=== PATIENT | male | born 1935 | race Caucasian/White ===

== ENCOUNTER 2022-09-09 18:59 | Emergency (ER) | payer MEDICARE, OTHER ==
[2022-09-09 19:24] LABS: BASOPHILS PERCENT AUTO 0.3 % (0.2-1.2); EOSINOPHILS ABSOLUTE AUTO 0.1 x10^3/uL (0.0-0.5); EOSINOPHILS PERCENT AUTO 2.2 % (0.0-4.0); HEMATOCRIT 36.5 % (40.0-52.0); HEMOGLOBIN 12.5 g/dL (14.0-18.0); LYMPHOCYTES ABSOLUTE AUTO 1.5 x10^3/uL (1.0-4.8); LYMPHOCYTES PERCENT AUTO 25.5 % (25.0-50.0); MEAN CORPUSCULAR HGB CONC 34.2 g/dL (32.0-36.0); MEAN CORPUSCULAR VOLUME 96.3 fL (78.0-93.0); MONOCYTES ABSOLUTE AUTO 0.8 x10^3/uL (0.0-0.8); MONOCYTES PERCENT AUTO 12.5 % (2.0-11.0); NEUTROPHILS ABSOLUTE AUTO 3.6 x10^3/uL (1.8-7.7); NEUTROPHILS PERCENT AUTO 59.5 % (50.0-80.0); PLATELET COUNT,PLT 167 x10^3/uL (130-400); RED BLOOD CELL COUNT 3.79 x10^6/uL (4.5-6.0)
[2022-09-09 19:44] LABS: A/G RATIO 1.03; ALANINE AMINOTRANSFERASE,ALT 27 U/L (16-63); ALBUMIN 3.5 g/dL (3.4-5.0); ALKALINE PHOSPHATASE 156 U/L (46-116); ANION GAP 13.7 mmol/L (5-15); ASPARTATE AMNIOTRANSFERASE,AST 19 U/L (15-37); BILIRUBIN TOTAL 0.3 mg/dL (0.2-1.0); BLOOD UREA NITROGEN,BUN 24 mg/dL (7-18); C-REACTIVE PROTEIN < 0.2 mg/dL (<=0.9); CALCIUM 9.5 mg/dL (8.5-10.1); CARBON DIOXIDE,CO2 29 mmol/L (21-32); CHLORIDE,CL 104 mmol/L (98-107); CREATINE KINASE,CK 112 U/L (39-308); EST CRCL DRUG DOSING (CG) 54.99 mL/min; ESTIMATED GFR 74 mL/min (>=60); GLUCOSE RANDOM 124 mg/dL (70-99); LACTATE DEHYDROGENASE,LDH 141 U/L (85-227); LIPASE 70 U/L (73-393); POTASSIUM,K 4.7 mmol/L (3.5-5.1); PROTEIN TOTAL,TP 6.9 g/dL (6.4-8.2); SODIUM,NA 142 mmol/L (136-145)
== END 2022-09-09 20:10 | disposition home or self-care (01) ==
LOC: VM.ED 18:59
DX: K21.9 Gastro-esophageal reflux disease without esophagitis (principal); R07.9 Chest pain, unspecified; I10 Essential (primary) hypertension; E78.00 Pure hypercholesterolemia, unspecified; I25.10 Atherosclerotic heart disease of native coronary artery without angina pectoris; I25.2 Old myocardial infarction; Z88.0 Allergy status to penicillin; Z88.8 Allergy status to other drugs, medicaments and biological substances; Z79.899 Other long term (current) drug therapy; Z79.02 Long term (current) use of antithrombotics/antiplatelets; Z95.1 Presence of aortocoronary bypass graft; Z87.891 Personal history of nicotine dependence; Z95.5 Presence of coronary angioplasty implant and graft
CPT/HCPCS: 36415; 71046; 80053; 82550; 83615; 83690; 84484; 85025; 86140; 93005; 93010; 99284; 99285

== ENCOUNTER 2023-01-14 08:11 | Emergency (ER) | payer MEDICARE, OTHER ==
[2023-01-14] MEDS ORDERED: Acetaminophen/HYDROcodone 325-5 MG Tab PO ONE (08:39)
== END 2023-01-14 12:13 | disposition home or self-care (01) ==
LOC: VM.ED 08:11
DX: R07.81 Pleurodynia (principal); C61 Malignant neoplasm of prostate; C79.51 Secondary malignant neoplasm of bone; I25.10 Atherosclerotic heart disease of native coronary artery without angina pectoris; E78.00 Pure hypercholesterolemia, unspecified; I10 Essential (primary) hypertension; Z95.1 Presence of aortocoronary bypass graft; Z88.6 Allergy status to analgesic agent; Z88.8 Allergy status to other drugs, medicaments and biological substances; Z88.0 Allergy status to penicillin; Z79.899 Other long term (current) drug therapy; Z79.02 Long term (current) use of antithrombotics/antiplatelets; W19.XXXA Unspecified fall, initial encounter
CPT/HCPCS: 71101; 71250; 99284; A9270

== ENCOUNTER 2023-06-24 14:46 | Inpatient (IN) | payer OTHER ==
[2023-06-24] MEDS ORDERED: Sodium Chloride 0.9% 1,000 ML IV SCH (22:00)
[2023-06-24] MEDS ORDERED: Sodium Chloride 0.9% 250 ML IV SCH (22:00)
== END 2023-06-24 22:47 | disposition other institution (70) | DRG 951 ==
LOC: VM.MS 15:16
PROVIDERS: ADMIT Nurse Practitioner Family; ATTEND Nurse Practitioner Family
DX: Z75.5 Holiday relief care (principal)

== ENCOUNTER 2023-06-24 22:47 | Inpatient (IN) | payer MEDICARE, OTHER ==
[2023-06-24 23:23] LABS: BASOPHILS PERCENT AUTO 0.4 % (0.2-1.2); EOSINOPHILS PERCENT AUTO 0.6 % (0.0-4.0); HEMOGLOBIN 12.5 g/dL (14.0-18.0); IMMATURE GRAN ABSOLUTE AUTO 0.05 x10^3/uL (0.00-0.07); LYMPHOCYTES ABSOLUTE AUTO 0.9 x10^3/uL (1.0-4.8); LYMPHOCYTES PERCENT AUTO 12.8 % (25.0-50.0); MEAN CORPUSCULAR HEMOGLOBIN 31.6 pg (26.0-32.0); MEAN CORPUSCULAR HGB CONC 33.8 g/dL (32.0-36.0); MEAN CORPUSCULAR VOLUME 93.7 fL (78.0-93.0); MONOCYTES PERCENT AUTO 14.2 % (2.0-11.0); NEUTROPHILS ABSOLUTE AUTO 4.8 x10^3/uL (1.8-7.7); NEUTROPHILS PERCENT AUTO 71.3 % (50.0-80.0); PLATELET COUNT,PLT 149 x10^3/uL (130-400); RED BLOOD CELL COUNT 3.95 x10^6/uL (4.5-6.0); WHITE BLOOD CELL COUNT,WBC 6.7 x10^3/uL (4.0-10.0)
[2023-06-24] MEDS: Sodium Chloride 0.9% 1,000 ML IV SCH (23:51)
[2023-06-24 23:52] LABS: A/G RATIO 0.74; ALBUMIN 2.8 g/dL (3.4-5.0); BILIRUBIN TOTAL 0.9 mg/dL (0.2-1.0); CREATININE 0.9 mg/dL (0.70-1.30); EST CRCL DRUG DOSING (CG) 52.2 mL/min; POTASSIUM,K 4.6 mmol/L (3.5-5.1); PROTEIN TOTAL,TP 6.6 g/dL (6.4-8.2)
[2023-06-24 23:53] LABS: ANION GAP 17.6 mmol/L (5-15)
[2023-06-25] MEDS: Acetaminophen 325 MG Tab PO PRN (01:00)
[2023-06-25] MEDS ORDERED: Acetaminophen 650 MG Supp RECTAL PRN (01:23)
[2023-06-25] MEDS ORDERED: Nitroglycerin 0.4 MG Tab.SL SL PRN (01:23)
[2023-06-25] MEDS ORDERED: Haloperidol Lactate 2 MG/ML Oral Soln 15 ML Bottle PO PRN (01:23)
[2023-06-25] MEDS ORDERED: Bisacodyl 10 MG Supp RECTAL PRN (01:23)
[2023-06-25] MEDS ORDERED: Ondansetron 4 MG Tab.DIS PO PRN (01:23)
[2023-06-25] MEDS ORDERED: Hyoscyamine 0.125 MG/ML Bottle SL PRN (01:46)
[2023-06-25] MEDS: LORazepam Conc Solution 2 MG/ML 30 ML Bottle SL ONE (02:08)
[2023-06-25] MEDS: Morphine Oral Concentrate 20 MG/ML 30 ML Bottle PO PRN (02:47)
[2023-06-25] MEDS: LORazepam Conc Solution 2 MG/ML 30 ML Bottle SL SCH (06:29)
[2023-06-25] MEDS: OMEPRAZOLE 20 MG PO SCH (06:31)
[2023-06-25] MEDS ORDERED: LORazepam Conc Solution 2 MG/ML 30 ML Bottle PO SCH (09:00)
[2023-06-25] MEDS: Methadone 5 MG Tab PO SCH (09:09)
[2023-06-25] MEDS: Dexamethasone 4 MG Tab PO SCH (09:15)
[2023-06-25] MEDS: Sennosides 8.6 MG Tab PO SCH (09:44)
[2023-06-25] MEDS: Naproxen 500 MG Tab PO SCH (09:44)
[2023-06-25] MEDS: Magnesium Hydroxide 400 MG/5 ML Susp 30 ML Cup PO SCH (09:45)
[2023-06-25] MEDS: Polyethylene Glycol 3350 Powder 17 GM Packet PO SCH (09:45)
[2023-06-25] MEDS: Clopidogrel 75 MG Tab PO SCH (09:59)
[2023-06-25] MEDS: ATORVASTATIN 20 MG PO SCH (09:59)
[2023-06-25] MEDS: atorvaSTATin 10 MG Tab PO SCH (11:02)
[2023-06-25] MEDS: METOPROLOL SUCCINATE 50 MG PO SCH (11:02)
[2023-06-25] MEDS: EZETIMIBE 10 MG PO SCH (11:02)
[2023-06-25] MEDS: ISOSORBIDE MONONITRATE 30 MG PO SCH (11:02)
[2023-06-25] MEDS: Omeprazole 20 MG Cap.CR PO SCH (18:31)
[2023-06-25] MEDS: Pantoprazole 40 MG Tab.CR PO SCH (19:24)
[2023-06-25] MEDS: Isosorbide Mononitrate 30 MG Tab.ER PO SCH (20:51)
[2023-06-25] MEDS: LORazepam Conc Solution 2 MG/ML 30 ML Bottle SL PRN (22:02)
[2023-06-26 07:17] LABS: CALCIUM 8.4 mg/dL (8.5-10.1); CREATININE 0.7 mg/dL (0.70-1.30); EST CRCL DRUG DOSING (CG) 67.11 mL/min; POTASSIUM,K 4.7 mmol/L (3.5-5.1)
[2023-06-26 07:18] LABS: ANION GAP 16.7 mmol/L (5-15)
[2023-06-26] MEDS ORDERED: Flumazenil 0.1 MG/ML 5 ML MDV IVPUSH PRN (09:07)
[2023-06-26] MEDS: Acetaminophen 325 MG Tab PO SCH (12:55)
[2023-06-26] MEDS: Naproxen 500 MG Tab PO PRN (18:11)
[2023-06-26] MEDS: LORazepam Conc Solution 2 MG/ML 30 ML Bottle SL PRN (21:23)
[2023-06-26] MEDS: QUEtiapine 25 MG Tab PO PRN (22:31)
[2023-06-27 07:35] LABS: A/G RATIO 0.72; ALBUMIN 2.3 g/dL (3.4-5.0); BILIRUBIN TOTAL 0.5 mg/dL (0.2-1.0); CALCIUM 8.5 mg/dL (8.5-10.1); CREATININE 0.8 mg/dL (0.70-1.30); EST CRCL DRUG DOSING (CG) 58.72 mL/min; POTASSIUM,K 4.9 mmol/L (3.5-5.1); PROTEIN TOTAL,TP 5.5 g/dL (6.4-8.2)
[2023-06-27 07:37] LABS: ANION GAP 13.9 mmol/L (5-15)
[2023-06-27 07:52] LABS: BASOPHILS PERCENT AUTO 0.1 % (0.2-1.2); HEMATOCRIT 28.3 % (40.0-52.0); HEMOGLOBIN 9.7 g/dL (14.0-18.0); IMMATURE GRAN ABSOLUTE AUTO 0.11 x10^3/uL (0.00-0.07); LYMPHOCYTES ABSOLUTE AUTO 0.4 x10^3/uL (1.0-4.8); LYMPHOCYTES PERCENT AUTO 5.1 % (25.0-50.0); MEAN CORPUSCULAR HEMOGLOBIN 32.2 pg (26.0-32.0); MEAN CORPUSCULAR HGB CONC 34.3 g/dL (32.0-36.0); MONOCYTES ABSOLUTE AUTO 0.6 x10^3/uL (0.0-0.8); MONOCYTES PERCENT AUTO 6.7 % (2.0-11.0); NEUTROPHILS ABSOLUTE AUTO 7.6 x10^3/uL (1.8-7.7); NEUTROPHILS PERCENT AUTO 86.8 % (50.0-80.0); RED BLOOD CELL COUNT 3.01 x10^6/uL (4.5-6.0); WHITE BLOOD CELL COUNT,WBC 8.7 x10^3/uL (4.0-10.0)
[2023-06-27 08:14] LABS: PLATELET COUNT,PLT 167 x10^3/uL (130-400)
[2023-06-27] MEDS: Metoprolol Succinate 50 MG Tab.ER PO SCH (09:25)
[2023-06-27 10:11] LABS: BILIRUBIN,URINE NEGATIVE (NEGATIVE); COLOR,URINE YELLOW (YELLOW); GLUCOSE,URINE NEGATIVE (NEGATIVE); KETONES,URINE NEGATIVE (NEGATIVE); LEUKOCYTE ESTERASE,URINE SMALL (NEGATIVE); NITRITE,URINE NEGATIVE (NEGATIVE); OCCULT BLOOD,URINE TRACE-INTACT (NEGATIVE); PH,URINE 5.5 (5.0-8.0); PROTEIN,URINE NEGATIVE (NEGATIVE); UROBILINOGEN,URINE 0.2 EU/dL (0.2)
[2023-06-27 10:20] LABS: APPEARANCE,URINE CLOUDY (CLEAR)
[2023-06-27 10:21] LABS: BACTERIA,URINE FEW /HPF (NOT SEEN); MUCUS,URINE FEW /LPF (NOT SEEN); WBC,URINE 20-30 /HPF (NOT SEEN)
[2023-06-27] MEDS: Sulfamethoxazole/Trimethoprim 400-80 MG Tab PO SCH (16:50)
[2023-06-28] MEDS: LORazepam 2 MG/ML SDV IVPUSH PRN (03:10)
[2023-06-28 06:51] LABS: BASOPHILS PERCENT AUTO 0.1 % (0.2-1.2); HEMATOCRIT 32.7 % (40.0-52.0); HEMOGLOBIN 11.2 g/dL (14.0-18.0); IMMATURE GRAN ABSOLUTE AUTO 0.16 x10^3/uL (0.00-0.07); LYMPHOCYTES ABSOLUTE AUTO 0.7 x10^3/uL (1.0-4.8); LYMPHOCYTES PERCENT AUTO 5.6 % (25.0-50.0); MEAN CORPUSCULAR HEMOGLOBIN 31.6 pg (26.0-32.0); MEAN CORPUSCULAR HGB CONC 34.3 g/dL (32.0-36.0); MEAN CORPUSCULAR VOLUME 92.4 fL (78.0-93.0); MONOCYTES PERCENT AUTO 8.1 % (2.0-11.0); NEUTROPHILS ABSOLUTE AUTO 10.5 x10^3/uL (1.8-7.7); NEUTROPHILS PERCENT AUTO 84.9 % (50.0-80.0); PLATELET COUNT,PLT 182 x10^3/uL (130-400); RED BLOOD CELL COUNT 3.54 x10^6/uL (4.5-6.0); WHITE BLOOD CELL COUNT,WBC 12.4 x10^3/uL (4.0-10.0)
[2023-06-28 07:13] LABS: A/G RATIO 0.79; ALBUMIN 2.6 g/dL (3.4-5.0); BILIRUBIN TOTAL 0.4 mg/dL (0.2-1.0); CALCIUM 8.6 mg/dL (8.5-10.1); CREATININE 0.9 mg/dL (0.70-1.30); EST CRCL DRUG DOSING (CG) 52.2 mL/min; PROTEIN TOTAL,TP 5.9 g/dL (6.4-8.2)
[2023-06-28] MEDS: Enoxaparin 40 MG/0.4 ML Syringe SUBCUT SCH (09:27)
[2023-06-28] MEDS: HYDROmorphone 0.5 MG/0.5 ML Syringe IVPUSH PRN (16:11)
[2023-06-28] MEDS: Amoxicillin/Clavulanate K 600-42.9 MG/5 ML Susp 125 ML Bottle PO SCH (17:55)
[2023-06-29 07:05] LABS: BASOPHILS PERCENT AUTO 0.1 % (0.2-1.2); HEMATOCRIT 30.2 % (40.0-52.0); HEMOGLOBIN 10.3 g/dL (14.0-18.0); LYMPHOCYTES ABSOLUTE AUTO 0.7 x10^3/uL (1.0-4.8); LYMPHOCYTES PERCENT AUTO 6.9 % (25.0-50.0); MEAN CORPUSCULAR HEMOGLOBIN 31.7 pg (26.0-32.0); MEAN CORPUSCULAR HGB CONC 34.1 g/dL (32.0-36.0); MEAN CORPUSCULAR VOLUME 92.9 fL (78.0-93.0); MONOCYTES ABSOLUTE AUTO 0.7 x10^3/uL (0.0-0.8); MONOCYTES PERCENT AUTO 7.4 % (2.0-11.0); NEUTROPHILS ABSOLUTE AUTO 7.8 x10^3/uL (1.8-7.7); NEUTROPHILS PERCENT AUTO 82.4 % (50.0-80.0); PLATELET COUNT,PLT 179 x10^3/uL (130-400); RED BLOOD CELL COUNT 3.25 x10^6/uL (4.5-6.0); WHITE BLOOD CELL COUNT,WBC 9.5 x10^3/uL (4.0-10.0)
[2023-06-29 07:17] LABS: CALCIUM 8.5 mg/dL (8.5-10.1); CREATININE 0.9 mg/dL (0.70-1.30); EST CRCL DRUG DOSING (CG) 52.2 mL/min
[2023-06-29] MEDS: HYDROmorphone 2 MG Tab PO PRN (17:34)
[2023-06-29] MEDS: Methadone 5 MG Tab PO SCH (21:17)
[2023-06-30] MEDS: Sodium Chloride 0.9% 10 ML Syringe FLUSH PRN (02:30)
[2023-06-30 07:24] LABS: HEMATOCRIT 33.9 % (40.0-52.0); HEMOGLOBIN 11.5 g/dL (14.0-18.0); MEAN CORPUSCULAR HEMOGLOBIN 31.7 pg (26.0-32.0); MEAN CORPUSCULAR HGB CONC 33.9 g/dL (32.0-36.0); MEAN CORPUSCULAR VOLUME 93.4 fL (78.0-93.0); PLATELET COUNT,PLT 180 x10^3/uL (130-400); RED BLOOD CELL COUNT 3.63 x10^6/uL (4.5-6.0); WHITE BLOOD CELL COUNT,WBC 11.1 x10^3/uL (4.0-10.0)
[2023-06-30 07:40] LABS: CALCIUM 8.6 mg/dL (8.5-10.1); CREATININE 0.9 mg/dL (0.70-1.30); EST CRCL DRUG DOSING (CG) 52.2 mL/min; POTASSIUM,K 4.6 mmol/L (3.5-5.1)
[2023-06-30 07:41] LABS: ANION GAP 14.6 mmol/L (5-15)
[2023-06-30] MEDS ORDERED: Magnesium Hydroxide 400 MG/5 ML Susp 30 ML Cup PO PRN (08:01)
[2023-06-30 08:02] LABS: BAND PERCENT MAN 2 % (0-6); LYMPHOCYTES ABSOLUTE MAN 1.2 x10^3/uL (1.0-4.8); LYMPHOCYTES PERCENT MAN 11 % (25-50); MONOCYTES ABSOLUTE MAN 1.2 x10^3/uL (0.0-0.8); MONOCYTES PERCENT MAN 11 % (2-11); NEUTROPHILS ABSOLUTE MAN 8.7 x10^3/uL (1.8-7.7); SEG NEUTROPHILS PERCENT MAN 76 % (50-80)
[2023-06-30 08:03] LABS: ANISOCYTOSIS 1+ SLIGHT; BURR CELLS 1+ SLIGHT; HYPOCHROMASIA 1+ SLIGHT; POIKILOCYTOSIS 1+ SLIGHT; POLYCHROMASIA 1+ SLIGHT
[2023-06-30 08:04] LABS: PLATELET COUNT ESTIMATE ADEQUATE
[2023-06-30 14:07] LABS: HEMATOCRIT 29.8 % (40.0-52.0); HEMOGLOBIN 10.1 g/dL (14.0-18.0)
[2023-06-30 14:28] LABS: INR 1.1 (0.9-1.1); PROTHROMBIN TIME 11.2 SEC (8.9-11.5)
[2023-06-30] MEDS: Lactobacillus Rhamnosus GG (Probiotic) Cap PO SCH (20:35)
[2023-07-01] MEDS ORDERED: Lidocaine 2% HCl 11 ML Jelly Filled Syringe TOP ONE (12:47)
[2023-07-01] MEDS: Nitroglycerin 2% Oint 1 GM UD Packet TOP PRN (13:32)
[2023-07-01] MEDS: Lidocaine 2% HCl 11 ML Jelly Filled Syringe TOP ONE (16:35)
[2023-07-02 08:10] LABS: HEMATOCRIT 29.9 % (40.0-52.0); HEMOGLOBIN 10.1 g/dL (14.0-18.0); MEAN CORPUSCULAR HEMOGLOBIN 31.7 pg (26.0-32.0); MEAN CORPUSCULAR HGB CONC 33.8 g/dL (32.0-36.0); MEAN CORPUSCULAR VOLUME 93.7 fL (78.0-93.0); PLATELET COUNT,PLT 171 x10^3/uL (130-400); RED BLOOD CELL COUNT 3.19 x10^6/uL (4.5-6.0); WHITE BLOOD CELL COUNT,WBC 9.5 x10^3/uL (4.0-10.0)
[2023-07-02 08:19] LABS: BAND PERCENT MAN 1 % (0-6); LYMPHOCYTES ABSOLUTE MAN 0.9 x10^3/uL (1.0-4.8); LYMPHOCYTES PERCENT MAN 9 % (25-50); MONOCYTES ABSOLUTE MAN 0.6 x10^3/uL (0.0-0.8); MONOCYTES PERCENT MAN 6 % (2-11); NEUTROPHILS ABSOLUTE MAN 8.1 x10^3/uL (1.8-7.7); SEG NEUTROPHILS PERCENT MAN 84 % (50-80)
[2023-07-02 08:20] LABS: ANISOCYTOSIS 1+ SLIGHT; PLATELET COUNT ESTIMATE ADEQUATE
[2023-07-02 08:23] LABS: GIANT PLATELETS OCCASIONAL; STOMATOCYTES RARE
[2023-07-02 08:24] LABS: OVALOCYTES 1+ SLIGHT
[2023-07-02] MEDS: HYDROCORTISONE ACETATE 25 MG SCH (11:19)
== END 2023-07-02 13:21 | disposition swing bed (61) | DRG 641 ==
LOC: VM.MS 22:47 → OBSVTOIN 06-26 10:29
PROVIDERS: ADMIT Physician Assistant Medical; ATTEND Family Medicine
PROC: 0T9B70Z Drainage of Bladder with Drainage Device, Via Natural or Artificial Opening (ICD-10-PCS; principal; 2023-06-27)
DX: E86.0 Dehydration (principal); C79.51 Secondary malignant neoplasm of bone; N39.0 Urinary tract infection, site not specified; F05 Delirium due to known physiological condition; E44.1 Mild protein-calorie malnutrition; N13.8 Other obstructive and reflux uropathy; D62 Acute posthemorrhagic anemia; K92.1 Melena; K60.2 Anal fissure, unspecified; E87.0 Hyperosmolality and hypernatremia; G89.3 Neoplasm related pain (acute) (chronic); Z51.5 Encounter for palliative care; C61 Malignant neoplasm of prostate; R33.9 Retention of urine, unspecified; Z66 Do not resuscitate; H91.90 Unspecified hearing loss, unspecified ear; H54.7 Unspecified visual loss; I25.10 Atherosclerotic heart disease of native coronary artery without angina pectoris; I10 Essential (primary) hypertension; K21.9 Gastro-esophageal reflux disease without esophagitis; M10.9 Gout, unspecified; M19.90 Unspecified osteoarthritis, unspecified site; M84.58XD Pathological fracture in neoplastic disease, other specified site, subsequent encounter for fracture with routine healing; F41.8 Other specified anxiety disorders; K59.00 Constipation, unspecified; R73.01 Impaired fasting glucose; R79.89 Other specified abnormal findings of blood chemistry; R26.89 Other abnormalities of gait and mobility; D63.0 Anemia in neoplastic disease; B96.89 Other specified bacterial agents as the cause of diseases classified elsewhere; N40.1 Benign prostatic hyperplasia with lower urinary tract symptoms; K62.4 Stenosis of anus and rectum; W19.XXXD Unspecified fall, subsequent encounter; E78.2 Mixed hyperlipidemia; Z88.8 Allergy status to other drugs, medicaments and biological substances; Z88.0 Allergy status to penicillin; Z79.02 Long term (current) use of antithrombotics/antiplatelets; Z79.899 Other long term (current) drug therapy; Z79.891 Long term (current) use of opiate analgesic; Z95.1 Presence of aortocoronary bypass graft; Z95.5 Presence of coronary angioplasty implant and graft; Z98.890 Other specified postprocedural states; Z87.891 Personal history of nicotine dependence; Z87.19 Personal history of other diseases of the digestive system; S32.591G Other specified fracture of right pubis, subsequent encounter for fracture with delayed healing
CPT/HCPCS: 36415 ×2; 80048; 80053; 83735; 85025; 99223; A9270 ×15; G0378 ×3; J7030 ×4; J8540 ×3; 81001; 82274; 85014; 85018; 85610; 87086; 87088; 87186; 93005; 95851-GO; 97110-GP; 97116-GP; 97162-GP; 97165-GO; 97530-GP; 97535-GO; J1170; J1650; J2060; J3490

== ENCOUNTER 2023-06-30 14:09 | Inpatient (IN) | payer MEDICARE, OTHER ==
[2023-07-02] MEDS ORDERED: Bisacodyl 10 MG Supp RECTAL PRN (08:53)
[2023-07-02] MEDS ORDERED: Ondansetron 4 MG Tab.DIS PO PRN (08:53)
[2023-07-02] MEDS ORDERED: Nitroglycerin 2% Oint 1 GM UD Packet TOP PRN ×2 (08:53)
[2023-07-02] MEDS ORDERED: Hyoscyamine 0.125 MG/ML Bottle SL PRN (08:53)
[2023-07-02] MEDS: Lactobacillus Rhamnosus GG (Probiotic) Cap PO SCH (17:00)
[2023-07-02] MEDS: Isosorbide Mononitrate 30 MG Tab.ER PO SCH (17:01)
[2023-07-02] MEDS: Methadone 5 MG Tab PO SCH (17:01)
[2023-07-02] MEDS: Dexamethasone 4 MG Tab PO SCH (17:01)
[2023-07-02] MEDS: Polyethylene Glycol 3350 Powder 17 GM Packet PO SCH (17:02)
[2023-07-02] MEDS: Sennosides 8.6 MG Tab PO SCH (17:02)
[2023-07-02] MEDS: Acetaminophen 325 MG Tab PO SCH (17:03)
[2023-07-02] MEDS: Metoprolol Succinate 50 MG Tab.ER PO SCH (17:03)
[2023-07-02] MEDS: Omeprazole 20 MG Cap.CR PO SCH (19:17)
[2023-07-02] MEDS: Amoxicillin/Clavulanate K 600-42.9 MG/5 ML Susp 125 ML Bottle PO SCH (19:18)
[2023-07-02] MEDS: QUEtiapine 25 MG Tab PO PRN (20:53)
[2023-07-02] MEDS: HYDROCORTISONE 25 MG SCH (20:54)
[2023-07-03] MEDS: HYDROmorphone 2 MG Tab PO PRN (00:32)
[2023-07-03] MEDS: LORazepam Conc Solution 2 MG/ML 30 ML Bottle SL PRN (01:56)
[2023-07-03 06:47] LABS: HEMATOCRIT 32.9 % (40.0-52.0); HEMOGLOBIN 11.1 g/dL (14.0-18.0); MEAN CORPUSCULAR HEMOGLOBIN 31.8 pg (26.0-32.0); MEAN CORPUSCULAR HGB CONC 33.7 g/dL (32.0-36.0); MEAN CORPUSCULAR VOLUME 94.3 fL (78.0-93.0); PLATELET COUNT,PLT 175 x10^3/uL (130-400); RED BLOOD CELL COUNT 3.49 x10^6/uL (4.5-6.0); WHITE BLOOD CELL COUNT,WBC 12.4 x10^3/uL (4.0-10.0)
[2023-07-03 07:18] LABS: A/G RATIO 0.73; ALBUMIN 2.7 g/dL (3.4-5.0); BILIRUBIN TOTAL 0.4 mg/dL (0.2-1.0); CALCIUM 8.3 mg/dL (8.5-10.1); CREATININE 0.9 mg/dL (0.70-1.30); EST CRCL DRUG DOSING (CG) 50.63 mL/min; POTASSIUM,K 4.5 mmol/L (3.5-5.1); PROTEIN TOTAL,TP 6.4 g/dL (6.4-8.2)
[2023-07-03 07:19] LABS: BAND PERCENT MAN 1 % (0-6); LYMPHOCYTES ABSOLUTE MAN 1.5 x10^3/uL (1.0-4.8); LYMPHOCYTES PERCENT MAN 12 % (25-50); MONOCYTES ABSOLUTE MAN 1.1 x10^3/uL (0.0-0.8); MONOCYTES PERCENT MAN 9 % (2-11); NEUTROPHILS ABSOLUTE MAN 9.8 x10^3/uL (1.8-7.7); SEG NEUTROPHILS PERCENT MAN 78 % (50-80)
[2023-07-03 07:21] LABS: ANION GAP 13.5 mmol/L (5-15); ANISOCYTOSIS 1+ SLIGHT; HYPOCHROMASIA 1+ SLIGHT; PLATELET COUNT ESTIMATE ADEQUATE; POLYCHROMASIA OCCASIONAL
[2023-07-05 07:02] LABS: HEMATOCRIT 32.3 % (40.0-52.0); HEMOGLOBIN 10.9 g/dL (14.0-18.0); IMMATURE GRAN ABSOLUTE AUTO 0.28 x10^3/uL (0.00-0.07); LYMPHOCYTES ABSOLUTE AUTO 0.8 x10^3/uL (1.0-4.8); LYMPHOCYTES PERCENT AUTO 6.3 % (25.0-50.0); MEAN CORPUSCULAR HEMOGLOBIN 31.7 pg (26.0-32.0); MEAN CORPUSCULAR HGB CONC 33.7 g/dL (32.0-36.0); MEAN CORPUSCULAR VOLUME 93.9 fL (78.0-93.0); MONOCYTES ABSOLUTE AUTO 0.8 x10^3/uL (0.0-0.8); MONOCYTES PERCENT AUTO 6.2 % (2.0-11.0); NEUTROPHILS ABSOLUTE AUTO 10.7 x10^3/uL (1.8-7.7); NEUTROPHILS PERCENT AUTO 85.3 % (50.0-80.0); PLATELET COUNT,PLT 156 x10^3/uL (130-400); RED BLOOD CELL COUNT 3.44 x10^6/uL (4.5-6.0); WHITE BLOOD CELL COUNT,WBC 12.5 x10^3/uL (4.0-10.0)
[2023-07-05 07:20] LABS: CALCIUM 8.1 mg/dL (8.5-10.1); CREATININE 0.9 mg/dL (0.70-1.30); EST CRCL DRUG DOSING (CG) 50.63 mL/min; POTASSIUM,K 4.6 mmol/L (3.5-5.1)
[2023-07-05 07:22] LABS: ANION GAP 12.6 mmol/L (5-15)
[2023-07-07 06:39] LABS: BASOPHILS PERCENT AUTO 0.1 % (0.2-1.2); EOSINOPHILS PERCENT AUTO 0.1 % (0.0-4.0); HEMATOCRIT 31.7 % (40.0-52.0); HEMOGLOBIN 10.7 g/dL (14.0-18.0); IMMATURE GRAN ABSOLUTE AUTO 0.27 x10^3/uL (0.00-0.07); LYMPHOCYTES ABSOLUTE AUTO 1.1 x10^3/uL (1.0-4.8); LYMPHOCYTES PERCENT AUTO 8.4 % (25.0-50.0); MEAN CORPUSCULAR HEMOGLOBIN 31.6 pg (26.0-32.0); MEAN CORPUSCULAR HGB CONC 33.8 g/dL (32.0-36.0); MEAN CORPUSCULAR VOLUME 93.5 fL (78.0-93.0); MONOCYTES ABSOLUTE AUTO 0.8 x10^3/uL (0.0-0.8); NEUTROPHILS ABSOLUTE AUTO 10.5 x10^3/uL (1.8-7.7); NEUTROPHILS PERCENT AUTO 83.3 % (50.0-80.0); PLATELET COUNT,PLT 141 x10^3/uL (130-400); RED BLOOD CELL COUNT 3.39 x10^6/uL (4.5-6.0); WHITE BLOOD CELL COUNT,WBC 12.6 x10^3/uL (4.0-10.0)
[2023-07-07 06:57] LABS: PROTHROMBIN TIME 10.6 SEC (8.9-11.5)
[2023-07-07 07:07] LABS: A/G RATIO 0.77; ALBUMIN 2.4 g/dL (3.4-5.0); BILIRUBIN TOTAL 0.5 mg/dL (0.2-1.0); CALCIUM 8.1 mg/dL (8.5-10.1); EST CRCL DRUG DOSING (CG) 45.56 mL/min; PROTEIN TOTAL,TP 5.5 g/dL (6.4-8.2)
[2023-07-07] MEDS: Dexamethasone 4 MG Tab PO SCH (09:47)
[2023-07-07] MEDS: Lidocaine/Prilocaine 2.5-2.5% Crm 5 GM Tube TOP PRN (14:00)
[2023-07-07] MEDS: QUEtiapine 25 MG Tab PO PRN (21:31)
[2023-07-08 07:53] LABS: BASOPHILS PERCENT AUTO 0.1 % (0.2-1.2); HEMATOCRIT 31.4 % (40.0-52.0); HEMOGLOBIN 10.5 g/dL (14.0-18.0); IMMATURE GRAN ABSOLUTE AUTO 0.23 x10^3/uL (0.00-0.07); LYMPHOCYTES ABSOLUTE AUTO 0.9 x10^3/uL (1.0-4.8); LYMPHOCYTES PERCENT AUTO 7.6 % (25.0-50.0); MEAN CORPUSCULAR HEMOGLOBIN 31.8 pg (26.0-32.0); MEAN CORPUSCULAR HGB CONC 33.4 g/dL (32.0-36.0); MEAN CORPUSCULAR VOLUME 95.2 fL (78.0-93.0); MONOCYTES ABSOLUTE AUTO 0.7 x10^3/uL (0.0-0.8); MONOCYTES PERCENT AUTO 5.8 % (2.0-11.0); NEUTROPHILS PERCENT AUTO 84.6 % (50.0-80.0); PLATELET COUNT,PLT 125 x10^3/uL (130-400); WHITE BLOOD CELL COUNT,WBC 11.9 x10^3/uL (4.0-10.0)
[2023-07-08 08:10] LABS: A/G RATIO 0.77; ALBUMIN 2.3 g/dL (3.4-5.0); BILIRUBIN TOTAL 0.4 mg/dL (0.2-1.0); CREATININE 0.9 mg/dL (0.70-1.30); EST CRCL DRUG DOSING (CG) 50.63 mL/min; POTASSIUM,K 4.8 mmol/L (3.5-5.1); PROTEIN TOTAL,TP 5.3 g/dL (6.4-8.2)
[2023-07-08 08:15] LABS: ANION GAP 13.8 mmol/L (5-15)
[2023-07-11] MEDS: Dexamethasone 4 MG Tab PO SCH (08:54)
[2023-07-11] MEDS: Clopidogrel 75 MG Tab PO SCH (13:21)
[2023-07-13 06:40] LABS: BASOPHILS PERCENT AUTO 0.1 % (0.2-1.2); EOSINOPHILS PERCENT AUTO 0.3 % (0.0-4.0); HEMATOCRIT 31.3 % (40.0-52.0); HEMOGLOBIN 10.6 g/dL (14.0-18.0); IMMATURE GRAN ABSOLUTE AUTO 0.11 x10^3/uL (0.00-0.07); LYMPHOCYTES ABSOLUTE AUTO 1.1 x10^3/uL (1.0-4.8); LYMPHOCYTES PERCENT AUTO 15.1 % (25.0-50.0); MEAN CORPUSCULAR HGB CONC 33.9 g/dL (32.0-36.0); MEAN CORPUSCULAR VOLUME 94.6 fL (78.0-93.0); MONOCYTES ABSOLUTE AUTO 0.4 x10^3/uL (0.0-0.8); MONOCYTES PERCENT AUTO 5.6 % (2.0-11.0); NEUTROPHILS ABSOLUTE AUTO 5.8 x10^3/uL (1.8-7.7); NEUTROPHILS PERCENT AUTO 77.4 % (50.0-80.0); RED BLOOD CELL COUNT 3.31 x10^6/uL (4.5-6.0); WHITE BLOOD CELL COUNT,WBC 7.5 x10^3/uL (4.0-10.0)
[2023-07-13 06:55] LABS: ANION GAP 13.4 mmol/L (5-15); CALCIUM 8.1 mg/dL (8.5-10.1); CREATININE 0.8 mg/dL (0.70-1.30); EST CRCL DRUG DOSING (CG) 58.72 mL/min; POTASSIUM,K 4.4 mmol/L (3.5-5.1)
[2023-07-13 07:12] LABS: PLATELET COUNT,PLT 96 x10^3/uL (130-400)
[2023-07-13 09:52] LABS: APPEARANCE,URINE TURBID (CLEAR); BILIRUBIN,URINE SMALL (NEGATIVE); COLOR,URINE YELLOW (YELLOW); GLUCOSE,URINE NEGATIVE (NEGATIVE); KETONES,URINE NEGATIVE (NEGATIVE); LEUKOCYTE ESTERASE,URINE LARGE (NEGATIVE); NITRITE,URINE POSITIVE (NEGATIVE); OCCULT BLOOD,URINE LARGE (NEGATIVE); PH,URINE 7.5 (5.0-8.0); PROTEIN,URINE 100 mg/dL (NEGATIVE); UROBILINOGEN,URINE 0.2 EU/dL (0.2)
[2023-07-13 10:01] LABS: BACTERIA,URINE FEW /HPF (NOT SEEN); SQUAMOUS EPITHELIAL CELLS,UR NOT SEEN /HPF (NOT SEEN); WBC,URINE 40-50 /HPF (NOT SEEN)
[2023-07-13 10:19] LABS: TRIPLE PHOSPHATE CRYSTALS,UR FEW /HPF (NOT SEEN)
[2023-07-13] MEDS: Sulfamethoxazole/Trimethoprim 800-160 MG Tab PO SCH (12:51)
[2023-07-14] MEDS: Tamsulosin 0.4 MG Cap.ER PO SCH (20:48)
[2023-07-17 07:05] LABS: EOSINOPHILS PERCENT AUTO 0.1 % (0.0-4.0); HEMATOCRIT 33.2 % (40.0-52.0); HEMOGLOBIN 11.1 g/dL (14.0-18.0); IMMATURE GRAN ABSOLUTE AUTO 0.15 x10^3/uL (0.00-0.07); LYMPHOCYTES ABSOLUTE AUTO 1.2 x10^3/uL (1.0-4.8); LYMPHOCYTES PERCENT AUTO 16.6 % (25.0-50.0); MEAN CORPUSCULAR HEMOGLOBIN 32.2 pg (26.0-32.0); MEAN CORPUSCULAR HGB CONC 33.4 g/dL (32.0-36.0); MEAN CORPUSCULAR VOLUME 96.2 fL (78.0-93.0); MONOCYTES ABSOLUTE AUTO 0.5 x10^3/uL (0.0-0.8); MONOCYTES PERCENT AUTO 6.3 % (2.0-11.0); NEUTROPHILS ABSOLUTE AUTO 5.6 x10^3/uL (1.8-7.7); PLATELET COUNT,PLT 103 x10^3/uL (130-400); RED BLOOD CELL COUNT 3.45 x10^6/uL (4.5-6.0); WHITE BLOOD CELL COUNT,WBC 7.5 x10^3/uL (4.0-10.0)
[2023-07-17 07:24] LABS: CALCIUM 8.5 mg/dL (8.5-10.1); EST CRCL DRUG DOSING (CG) 44.21 mL/min; POTASSIUM,K 4.8 mmol/L (3.5-5.1)
[2023-07-17 07:25] LABS: ANION GAP 16.8 mmol/L (5-15)
[2023-07-17] MEDS: Tamsulosin 0.4 MG Cap.ER PO SCH (20:33)
[2023-07-18] MEDS: Omeprazole 20 MG Cap.CR PO SCH (06:52)
[2023-07-18] MEDS: LORazepam Conc Solution 2 MG/ML 30 ML Bottle SL PRN (23:56)
[2023-07-22] MEDS: Nitroglycerin 0.4 MG Tab.SL SL ONE (11:32)
[2023-07-22 12:46] LABS: CALCIUM 8.7 mg/dL (8.5-10.1); EST CRCL DRUG DOSING (CG) 44.21 mL/min; POTASSIUM,K 4.9 mmol/L (3.5-5.1)
[2023-07-22 12:47] LABS: ANION GAP 15.9 mmol/L (5-15)
[2023-07-25 08:58] LABS: BASOPHILS PERCENT AUTO 0.2 % (0.2-1.2); EOSINOPHILS PERCENT AUTO 0.2 % (0.0-4.0); HEMATOCRIT 33.5 % (40.0-52.0); HEMOGLOBIN 11.2 g/dL (14.0-18.0); IMMATURE GRAN ABSOLUTE AUTO 0.15 x10^3/uL (0.00-0.07); LYMPHOCYTES ABSOLUTE AUTO 1.1 x10^3/uL (1.0-4.8); LYMPHOCYTES PERCENT AUTO 24.5 % (25.0-50.0); MEAN CORPUSCULAR HEMOGLOBIN 32.1 pg (26.0-32.0); MEAN CORPUSCULAR HGB CONC 33.4 g/dL (32.0-36.0); MONOCYTES ABSOLUTE AUTO 0.4 x10^3/uL (0.0-0.8); MONOCYTES PERCENT AUTO 7.7 % (2.0-11.0); NEUTROPHILS PERCENT AUTO 64.2 % (50.0-80.0); RED BLOOD CELL COUNT 3.49 x10^6/uL (4.5-6.0); WHITE BLOOD CELL COUNT,WBC 4.7 x10^3/uL (4.0-10.0)
[2023-07-25 09:09] LABS: ANION GAP 16.5 mmol/L (5-15); CALCIUM 8.7 mg/dL (8.5-10.1); CREATININE 0.8 mg/dL (0.70-1.30); EST CRCL DRUG DOSING (CG) 51.93 mL/min; PLATELET COUNT,PLT 91 x10^3/uL (130-400); POTASSIUM,K 4.5 mmol/L (3.5-5.1)
[2023-07-25 12:01] LABS: APPEARANCE,URINE TURBID (CLEAR); BILIRUBIN,URINE SMALL (NEGATIVE); COLOR,URINE DARK YELLOW (YELLOW); GLUCOSE,URINE NEGATIVE (NEGATIVE); KETONES,URINE NEGATIVE (NEGATIVE); LEUKOCYTE ESTERASE,URINE SMALL (NEGATIVE); NITRITE,URINE POSITIVE (NEGATIVE); OCCULT BLOOD,URINE LARGE (NEGATIVE); PH,URINE >=9.0 (5.0-8.0); PROTEIN,URINE >=300 mg/dL (NEGATIVE)
[2023-07-25 12:21] LABS: BACTERIA,URINE MANY /HPF (NOT SEEN); MUCUS,URINE FEW /LPF (NOT SEEN); RBC,URINE 20-30 /HPF (NOT SEEN); SQUAMOUS EPITHELIAL CELLS,UR NOT SEEN /HPF (NOT SEEN); TRIPLE PHOSPHATE CRYSTALS,UR FEW /HPF (NOT SEEN); WBC,URINE 20-30 /HPF (NOT SEEN)
[2023-07-25] MEDS: D-Mannose 500 MG Cap PO SCH (12:26)
[2023-07-25] MEDS ORDERED: Calcium Carbonate 750 MG Tab.Chew PO PRN (13:22)
[2023-07-25] MEDS: Sulfamethoxazole/Trimethoprim 800-160 MG Tab PO SCH (15:21)
[2023-07-25] MEDS: Methadone 5 MG Tab PO SCH (20:20)
[2023-07-26] MEDS: Dexamethasone 4 MG Tab PO SCH (12:08)
[2023-07-26] MEDS: Phenazopyridine 95 MG Tab PO PRN (14:46)
[2023-07-27] MEDS: Omeprazole 20 MG Cap.CR PO SCH (06:47)
[2023-07-29] MEDS: Magnesium Hydroxide 400 MG/5 ML Susp 30 ML Cup PO PRN (10:55)
[2023-07-31 06:58] LABS: HEMATOCRIT 33.6 % (40.0-52.0); HEMOGLOBIN 11.1 g/dL (14.0-18.0); MEAN CORPUSCULAR VOLUME 96.8 fL (78.0-93.0); PLATELET COUNT,PLT 139 x10^3/uL (130-400); RED BLOOD CELL COUNT 3.47 x10^6/uL (4.5-6.0); WHITE BLOOD CELL COUNT,WBC 8.3 x10^3/uL (4.0-10.0)
[2023-07-31 07:09] LABS: CALCIUM 8.6 mg/dL (8.5-10.1); CREATININE 0.9 mg/dL (0.70-1.30); EST CRCL DRUG DOSING (CG) 45.81 mL/min; POTASSIUM,K 4.6 mmol/L (3.5-5.1)
[2023-07-31 07:12] LABS: ANION GAP 16.6 mmol/L (5-15)
[2023-07-31 07:36] LABS: ANISOCYTOSIS 2+ MODERATE; BAND PERCENT MAN 3 % (0-6); HYPOCHROMASIA 1+ SLIGHT; LYMPHOCYTES ABSOLUTE MAN 1.9 x10^3/uL (1.0-4.8); LYMPHOCYTES PERCENT MAN 23 % (25-50); METAMYELOCYTE PERCENT MAN 1 % (0); MONOCYTES ABSOLUTE MAN 0.6 x10^3/uL (0.0-0.8); MONOCYTES PERCENT MAN 7 % (2-11); NEUTROPHILS ABSOLUTE MAN 5.7 x10^3/uL (1.8-7.7); POLYCHROMASIA FEW; SEG NEUTROPHILS PERCENT MAN 66 % (50-80); STOMATOCYTES 1+ SLIGHT
[2023-07-31 07:37] LABS: PLATELET COUNT ESTIMATE ADEQUATE
[2023-07-31] MEDS: Ciprofloxacin 500 MG Tab PO SCH (09:14)
[2023-08-05] MEDS ORDERED: Lidocaine 2% HCl 11 ML Jelly Filled Syringe MUCMEM PRN (16:19)
[2023-08-08] MEDS ORDERED: HYDROCORTISONE ACETATE PRN (15:25)
[2023-08-10] MEDS ORDERED: Polyethylene Glycol 3350 Powder 17 GM Packet PO PRN (13:13)
[2023-08-10] MEDS: Sennosides 8.6 MG Tab PO SCH (20:20)
[2023-08-11 07:50] LABS: BASOPHILS PERCENT AUTO 0.1 % (0.2-1.2); HEMATOCRIT 33.7 % (40.0-52.0); IMMATURE GRAN ABSOLUTE AUTO 0.39 x10^3/uL (0.00-0.07); LYMPHOCYTES ABSOLUTE AUTO 2.2 x10^3/uL (1.0-4.8); LYMPHOCYTES PERCENT AUTO 22.8 % (25.0-50.0); MEAN CORPUSCULAR HEMOGLOBIN 31.9 pg (26.0-32.0); MEAN CORPUSCULAR HGB CONC 32.6 g/dL (32.0-36.0); MEAN CORPUSCULAR VOLUME 97.7 fL (78.0-93.0); MONOCYTES ABSOLUTE AUTO 0.7 x10^3/uL (0.0-0.8); NEUTROPHILS ABSOLUTE AUTO 6.4 x10^3/uL (1.8-7.7); NEUTROPHILS PERCENT AUTO 66.1 % (50.0-80.0); PLATELET COUNT,PLT 139 x10^3/uL (130-400); RED BLOOD CELL COUNT 3.45 x10^6/uL (4.5-6.0); WHITE BLOOD CELL COUNT,WBC 9.7 x10^3/uL (4.0-10.0)
[2023-08-11 08:04] LABS: ANION GAP 16.6 mmol/L (5-15); CALCIUM 8.4 mg/dL (8.5-10.1); CREATININE 0.7 mg/dL (0.70-1.30); EST CRCL DRUG DOSING (CG) 58.9 mL/min; POTASSIUM,K 3.6 mmol/L (3.5-5.1)
[2023-08-15] MEDS: Acetaminophen 325 MG Tab PO PRN (14:05)
== END 2023-08-15 15:15 | disposition home health service (06) | DRG 948 ==
LOC: VM.MS 07-02 13:25
PROVIDERS: ADMIT Internal Medicine; ATTEND Internal Medicine
DX: R53.1 Weakness (principal); C79.51 Secondary malignant neoplasm of bone; F05 Delirium due to known physiological condition; N39.0 Urinary tract infection, site not specified; E46 Unspecified protein-calorie malnutrition; E87.1 Hypo-osmolality and hyponatremia; C61 Malignant neoplasm of prostate; H91.90 Unspecified hearing loss, unspecified ear; H54.7 Unspecified visual loss; I25.10 Atherosclerotic heart disease of native coronary artery without angina pectoris; I10 Essential (primary) hypertension; K57.30 Diverticulosis of large intestine without perforation or abscess without bleeding; K21.9 Gastro-esophageal reflux disease without esophagitis; M10.9 Gout, unspecified; M19.90 Unspecified osteoarthritis, unspecified site; W19.XXXD Unspecified fall, subsequent encounter; K62.4 Stenosis of anus and rectum; E78.2 Mixed hyperlipidemia; Z66 Do not resuscitate; N13.9 Obstructive and reflux uropathy, unspecified; F41.9 Anxiety disorder, unspecified; R73.01 Impaired fasting glucose; D64.9 Anemia, unspecified; D69.6 Thrombocytopenia, unspecified; R43.9 Unspecified disturbances of smell and taste; R33.9 Retention of urine, unspecified; E86.0 Dehydration; S32.591D Other specified fracture of right pubis, subsequent encounter for fracture with routine healing; Z88.8 Allergy status to other drugs, medicaments and biological substances; Z88.0 Allergy status to penicillin; Z79.899 Other long term (current) drug therapy; Z79.2 Long term (current) use of antibiotics; Z95.1 Presence of aortocoronary bypass graft; Z87.19 Personal history of other diseases of the digestive system; Z87.442 Personal history of urinary calculi; Z95.5 Presence of coronary angioplasty implant and graft; Z98.890 Other specified postprocedural states
CPT/HCPCS: 36415; 51702; 51798; 70450; 80048; 80053; 81001; 84484; 85025; 85610; 87086; 87088; 87186; 92523-GN; 95851-GO; 97110-GP; 97116-GP; 97530-GP; 97535-GO; A9270-GY; J8540; U0002